=== PATIENT | male | born 1960 | race Caucasian/White ===

== ENCOUNTER 2023-09-26 11:14 | Emergency (ER) | payer BC, SELFPAY ==
[2023-09-26 11:30] VITALS: BP 140/85; PULSE 97; RESP 14; TEMP 38.3; O2SAT 97
--- NOTE | 2023-09-26 11:50 | ED.GENADULT ---
HPI - General Adult General Chief complaint: Fever Stated complaint: joint pain,very tired, hair hurts Time Seen by Provider: 09/26/23 11:37 Source: patient and RN notes reviewed Mode of arrival: ambulatory Limitations: no limitations History of Present Illness HPI narrative: Patient presents today complaining of a 3 day history of fatigue, joint aches in the wrist and knees, headache, decreased appetite. He has done several home COVID test that were negative. Denies known fever, sweats, chills, nausea, vomiting, diarrhea, abdominal pain, constipation, congestion, rhinorrhea, sore throat, cough. Currently rates his discomfort 11/20. He took some ibuprofen yesterday without relief. States that this due to his decreased appetite he has been drinking water and soda, but has not been eating. Patient states he had routine blood work done approximately 1 month ago by his PCP in states everything was normal. Patient does continue to work 10-12 hour days Related Data Home Medications Medication Instructions Recorded Confirmed No Home Medications 09/26/23 09/26/23 Allergies Allergy/AdvReac Type Severity Reaction Status Date / Time No Known Allergies Allergy Unknown Verified 09/26/23 11:18 Review of Systems Review of Systems: CONSTITUTIONAL: Denies fever, chills, or sweats.+ body aches, fatigue EYES: Denies visual changes, redness, or discharge. ENT: Denies rhinorrhea, congestion, sore throat, or otalgia. CARDIOVASCULAR: Denies chest pain, palpitations, or edema. RESPIRATORY: Denies cough or dyspnea. GASTROINTESTINAL: Denies abdominal pain, nausea, vomiting, or diarrhea.+ decreased appetite GENITOURINARY: Denies dysuria or hematuria. SKIN: Denies rash, itching, or wounds. MUSCULOSKELETAL: Denies back pain, or myalgia.+ joint pain NEUROLOGIC: Denies numbness, tingling, or weakness.+ headache PSYCH: Denies depression or anxiety. PMFSH Comments At time of signature, I have reviewed and agree with nursing past medical, surgical, social and family history unless otherwise noted. Please see nursing chart for further information. There is no relevant family history pertinent to the presenting complaint Exam Narrative: GENERAL: Well-appearing, well-nourished, and in no acute distress. HEAD: Normocephalic, atraumatic. EYES: EOMI. No redness or drainage. Conjunctivae normal. ENT: Mucous membranes pink and moist. Nares clear. No rhinorrhea. TMs normal bilaterally. Throat normal. Uvula midline. NECK: Normal AROM. Supple. No lymphadenopathy. CHEST: No respiratory distress. Clear to auscultation. HEART: Regular rate and rhythm. No murmur appreciated. Normal peripheral pulses. ABDOMEN: Soft, nontender, nondistended, normal active bowel sounds. EXTREMITIES: Normal range of motion. No edema. SKIN: Warm, dry, no rash. Capillary refill normal. Normal skin turgor. NEURO: No focal deficits. Alert and oriented x3. Gait steady. PSYCH: Normal affect. No signs of depression or anxiety. Course Course Level of Care: Express Care Visit Vital Signs Vital signs: Vital Signs Temperature 101 F H 09/26/23 11:30 Pulse Rate 97 09/26/23 11:30 Respiratory Rate 14 09/26/23 11:30 Blood Pressure 140/85 09/26/23 11:30 Pulse Oximetry 97 09/26/23 11:30 Oxygen Delivery Room Air 09/26/23 11:30 Temperature 101 F H 09/26/23 11:30 Pulse Rate 97 09/26/23 11:30 Respiratory Rate 14 09/26/23 11:30 Blood Pressure 140/85 09/26/23 11:30 Pulse Oximetry 97 09/26/23 11:30 Oxygen Delivery Room Air 09/26/23 11:30 Reviewed Medical Decision Making MDM Narrative Medical decision making narrative: Influenza negative. Discussed options with patient to transfer to ER for further evaluation, discharge home to eat some food and rest to see if symptoms resolve, or contact his PCP for appt. Patient would like to go home at this time. States his brother told him to drink some Boost. At this time, I am uns
== END 2023-09-26 12:30 | disposition home or self-care (01) ==
PROVIDERS: Emergency Provider Nurse Practitioner; PCP Internal Medicine
DX: R52 Pain, unspecified (principal); R53.83 Other fatigue; R50.9 Fever, unspecified
CPT/HCPCS: 87804; 99213; G0463